=== PATIENT | female | born 1985 | race Two or more races ===

== ENCOUNTER 2023-08-19 17:36 | Emergency (ER) | payer OTHER ==
[~2023-08-19] VITALS: Ht 157.5 cm; Wt 56.7 kg
[2023-08-19] MEDS ORDERED: PRENA1 TRUE CO1 EACH PO (18:46)
[2023-08-19] MEDS ORDERED: ONDANSETRON HCL 2 MG/ML VIAL IV STA (18:56)
[2023-08-19] MEDS ORDERED: FAMOTIDINE/PF 20 MG in 0.9 % SODIUM CHLORIDE 8 ML IV PUSH STA (18:57)
[2023-08-19] MEDS ORDERED: 0.9 % SODIUM CHLORIDE 1,000 ML IV STA (18:57)
[2023-08-19 19:47] LABS: HEMATOCRIT 40.1 % (36.0-45.00); HEMOGLOBIN 14.1 g/dL (12.0-15.00); MEAN CELL VOLUME 86.9 fL (80.00-100.00); MEAN CORPUSCULAR HEMOGLOBIN 30.5 pg (27.00-32.0); MEAN CORPUSCULAR HGB CONC 35.1 g/dl (32.0-36.0); PLATELET COUNT 212 K/uL (150-450); RED BLOOD COUNT 4.61 M/uL (4.00-6.00); RED CELL DISTRIBUTION WIDTH 12.8 % (11.5-14.5)
[2023-08-19 20:40] LABS: CREATININE SERUM 0.63 mg/dL (0.55-1.02); GFR 107.54; POTASSIUM 3.72 mEq/L (3.5-5.1)
== END 2023-08-19 21:47 | disposition home or self-care (01) ==
LOC: ER 17:37
PROVIDERS: Emergency Medicine
DX: R11.10 Vomiting, unspecified (principal); Z33.1 Pregnant state, incidental; Z3A.01 Less than 8 weeks gestation of pregnancy; R10.9 Unspecified abdominal pain

== ENCOUNTER 2023-11-19 08:06 | Outpatient (CLI) | payer OTHER ==
[~2023-11-19 08:06] MED LIST: PRENA1 TRUE CO1 EACH PO
== END 2023-11-19 08:07 | disposition home or self-care (01) ==
LOC: PRENATAL 08:06
PROVIDERS: ATTEND Obstetrics & Gynecology Maternal & Fetal Medicine
DX: O35.9XX0 Maternal care for (suspected) fetal abnormality and damage, unspecified, not applicable or unspecified (principal); O35.3XX0 Maternal care for (suspected) damage to fetus from viral disease in mother, not applicable or unspecified; O44.02 Complete placenta previa NOS or without hemorrhage, second trimester; O09.522 Supervision of elderly multigravida, second trimester; Z3A.19 19 weeks gestation of pregnancy

== ENCOUNTER → 2024-02-18 08:44 | Outpatient (CLI) | payer OTHER | END | disposition home or self-care (01) | LOC: PRENATAL 08:44 | PROVIDERS: ATTEND Obstetrics & Gynecology Maternal & Fetal Medicine | DX: O26.849 Uterine size-date discrepancy, unspecified trimester (principal); O36.8199 Decreased fetal movements, unspecified trimester, other fetus; O09.529 Supervision of elderly multigravida, unspecified trimester; Z3A.32 32 weeks gestation of pregnancy ==